=== PATIENT | female | born 1950 | race Caucasian/White ===

== ENCOUNTER → 2020-12-19 | Day surgery (SDC) | payer MEDICARE ==
[~2020-12-19] MED LIST: CHOL10002 PO; IPRATRPIUM/ALBUTEROL 0.5/2.5MG 3 ML NEBU. NEB PRN; IV RINGERS SOLUTION,LACTATED 1,000 ML IV SCH; LIDOCAINE 2% PF 5 ML VIAL. ONE; MIDAZOLAM HCL PF 2 MG/2 ML VIAL. IV ONE; ONDANSETRON PF 4 MG/2 ML VIAL. IV PRN; PROPOFOL 10,000 MCG/ML (20ML) VIAL IV ONE
[2020-12-19 11:51] VITALS: BP 143/91
--- NOTE | 2020-12-22 19:07 | PATHOLOGY ---
[facility] Accession Number: [id number] . 01 Material submitted: . colon - DESCENDING COLON POLYP BIOPSY. Modifiers: descending . 01 Clinical history: . PREVIOUS HISTORY OF POLYPS COLONOSCOPY . 02 Diagnosis: Colon biopsy, descending colon polyp: - Hyperplastic polyp. . ([facility]:mm; 12/22/2020) [facility] 12/22/2020 1202 Local . 02 Comment: There are no adenomatous changes or evidence of malignancy. . ([facility]:mm; 12/22/2020) . 02 Electronically signed: . Jonathan Roque MD, Pathologist NPI- [id number] . 01 Gross description: . Received in formalin labeled "Jocelyne Bailey, descending colon polyp" is a fragment of joyner-brown soft tissue measuring 0.5 x 0.4 x 0.3 cm. The specimen is submitted entirely in A1. ([facility]; 12/20/2020) . GZA/GZA 12/20/2020 1043 Local . 02 Pathologist provided ICD-10: K63.5 . 02 CPT . 990990 Specimen Comment: A courtesy copy of this report has been sent to [phone], [phone] Specimen Comment: [id number] Specimen Comment: Report sent to / DR BECKER Specimen Comment: A duplicate report has been generated due to demographic updates. Performed at: 01 [facility] [address] [id number] MD Gilberto Diaz MD Phone: [phone] Performed at: 02 [facility] [address] [place], [place] [id number] MD Jonathan Roque MD Phone: [phone]
== END | disposition home or self-care (01) ==
LOC: SURG 09:52
PROVIDERS: ATTEND Internal Medicine Gastroenterology
DX: Z12.11 Encounter for screening for malignant neoplasm of colon (principal); K63.5 Polyp of colon; K57.30 Diverticulosis of large intestine without perforation or abscess without bleeding; K64.0 First degree hemorrhoids; M19.90 Unspecified osteoarthritis, unspecified site; Z86.010 Personal history of colon polyps; Z72.89 Other problems related to lifestyle; Z98.890 Other specified postprocedural states; Z79.899 Other long term (current) drug therapy
CPT/HCPCS: 45380; J2001; J2704; J7120

== ENCOUNTER → 2021-03-31 | Outpatient (CLI) | payer MEDICARE ==
[2020-12-19 11:51] VITALS: BP 143/91
[~2021-03-31] MED LIST changes: -IPRATRPIUM/ALBUTEROL 0.5/2.5MG 3 ML NEBU. NEB PRN; -IV RINGERS SOLUTION,LACTATED 1,000 ML IV SCH; -LIDOCAINE 2% PF 5 ML VIAL. ONE; -MIDAZOLAM HCL PF 2 MG/2 ML VIAL. IV ONE; -ONDANSETRON PF 4 MG/2 ML VIAL. IV PRN; -PROPOFOL 10,000 MCG/ML (20ML) VIAL IV ONE
--- NOTE | 2021-03-31 13:25 | RAD ---
XR KNEE 3 VIEWS_RT DATE: 03/31/2021 7:50 AM INDICATION: RT KNEE PAIN, NKI COMPARISON: None. FINDINGS: Bones: There is no evidence of acute fracture or dislocation. Joints: Mild tricompartmental degenerative changes . Moderate joint effusion. Miscellaneous: None. IMPRESSION: 1. Mild tricompartmental degenerative changes. 2. Moderate knee joint effusion. Electronically signed by: Reed Busch MD (03/31/2021 1:23 PM) [id number]
== END ==
LOC: RAD 07:44
PROVIDERS: ATTEND Specialist
DX: M17.11 Unilateral primary osteoarthritis, right knee (principal); M25.461 Effusion, right knee
CPT/HCPCS: 73562